=== PATIENT | male | born 1960 | race Hispanic/Latino ===

== ENCOUNTER 2020-09-07 00:13 | Inpatient (IN) | payer MEDICARE, OTHER ==
[~2020-09-07] VITALS: Ht 162.6 cm; Wt 69.7 kg
[2020-09-07 01:08] LABS: BASOPHILS % (AUTO) 0.3 % (0.0-5.0); EOSINOPHILS % (AUTO) 2.8 % (0.0-8.0); LYMPHOCYTES % (AUTO) 27.6 % (21.0-51.0); MEAN CORPUSCULAR HEMOGLOBIN 30.9 pg (27.0-33.0); MEAN CORPUSCULAR VOLUME 96.7 fL (79-99); MONOCYTES % (AUTO) 6.1 % (3.0-13.0); PLATELET COUNT (AUTO) 155 K/uL (130-400); RED BLOOD CELL COUNT(AUTO) 1.81 MIL/uL (4.50-6.20); WHITE BLOOD COUNT (AUTO) 6.1 K/uL (4.8-10.8)
[2020-09-07 01:11] LABS: INR 0.99 (0.85-1.15); PROTHROMBIN TIME 10.6 SEC (9.6-11.6)
[2020-09-07 01:12] LABS: PARTIAL THROMBOPLASTIN TIME 25.4 SEC (26.3-35.5)
[2020-09-07 01:13] LABS: HEMATOCRIT 17.5 % (42-54)
[2020-09-07 01:24] LABS: B-TYPE NATRIURETIC PEPTIDE 409 pg/mL (0-100)
[2020-09-07 01:50] LABS: ALBUMIN 2.3 g/dL (3.5-5.0); BILIRUBIN,TOTAL 0.1 mg/dL (0.2-1.0); TOTAL PROTEIN, SERUM 5.2 g/dL (6.0-8.3)
[2020-09-07 02:04] LABS: CREATININE 12.3 mg/dL (0.5-1.5)
[2020-09-07] MEDS ORDERED: ONDANSETRON 4MG INJ IV PRN (03:00)
[2020-09-07] MEDS ORDERED: MORPHINE 2 MG SYG IV PRN (03:00)
[2020-09-07] MEDS ORDERED: 0.9% NACL 250ML 250 ML IV ONE (03:07)
[2020-09-07] MEDS ORDERED: PANTOPRAZOLE 40 MG/VIAL ONE (03:19)
[2020-09-07] MEDS ORDERED: 0.9%NACL 100ML 100 ML IV ONE (03:20)
[2020-09-07] MEDS ORDERED: 0.9%NACL 1000ML 1,000 ML IV ONE (03:20)
[2020-09-07 03:40] LABS: AMPHET/METH SCREEN,URINE NEGATIVE (NEGATIVE); BARBITURATE SCREEN, URINE NEGATIVE (NEGATIVE); BENZODIAZEPINES SCREEN,URINE NEGATIVE (NEGATIVE); CANNABINOID SCREEN,URINE NEGATIVE (NEGATIVE); COCAINE SCREEN,URINE NEGATIVE (NEGATIVE); OPIATE SCREEN,URINE NEGATIVE (NEGATIVE); PHENCYCLIDINE SCREEN,URINE NEGATIVE (NEGATIVE)
[2020-09-07] MEDS: PANTOPRAZOLE 40MG INJ 80 MG in 0.9%NACL 100ML 100 ML IV SCH ×2 (05:00→16:38)
[2020-09-07 08:30] VITALS: BP 151/91
[2020-09-07 12:00] VITALS: BP 152/85
[2020-09-07 12:01] LABS: HEMATOCRIT 21.2 % (42-54)
[2020-09-07] MEDS ORDERED: SODIUM BICARBONATE 650 MG TAB PO PRN (13:15)
[2020-09-07 16:00] VITALS: BP 152/85
[2020-09-07 20:00] VITALS: BP 145/89
[2020-09-07 20:47] LABS: HEMATOCRIT 24.4 % (42-54)
[2020-09-07] MEDS ORDERED: CLONIDINE HCL 0.1 MG TABLET PO PRN (22:00)
[2020-09-07] MEDS ORDERED: ACETAMINOPHEN 325 MG TAB PO PRN (22:00)
[2020-09-08] VITALS: BP 140/91
[2020-09-08 00:38] LABS: HEMATOCRIT 23.6 % (42-54)
[2020-09-08] MEDS: PANTOPRAZOLE 40MG INJ 80 MG in 0.9%NACL 100ML 100 ML IV SCH ×2 (01:36→12:05)
[2020-09-08 04:00] VITALS: BP 137/78
[2020-09-08 06:53] LABS: RETICULOCYTE % (AUTO) 1.16 % (0.42-2.23)
[2020-09-08 06:54] LABS: BASOPHILS % (AUTO) 0.5 % (0.0-5.0); EOSINOPHILS % (AUTO) 2.5 % (0.0-8.0); HEMATOCRIT 27.9 % (42-54); LYMPHOCYTES % (AUTO) 18.7 % (21.0-51.0); MEAN CORPUSCULAR HEMOGLOBIN 29.5 pg (27.0-33.0); MEAN CORPUSCULAR HGB CONC 32.6 g/dL (32.0-36.0); MEAN CORPUSCULAR VOLUME 90.6 fL (79-99); MONOCYTES % (AUTO) 5.4 % (3.0-13.0); NEUTROPHILS % (AUTO) 71.9 % (40.0-77.0); PLATELET COUNT (AUTO) 146 K/uL (130-400); RED BLOOD CELL COUNT(AUTO) 3.08 MIL/uL (4.50-6.20); WHITE BLOOD COUNT (AUTO) 6.1 K/uL (4.8-10.8)
[2020-09-08 07:09] LABS: POTASSIUM 4.8 mmol/L (3.5-5.1)
[2020-09-08 07:19] LABS: % IRON SATURATION 38.9 % (30-44)
[2020-09-08 07:25] LABS: CREATININE 12.6 mg/dL (0.5-1.5)
[2020-09-08 08:00] VITALS: BP 154/90
[2020-09-08] MEDS: HYDRALAZINE 25MG TABLET PO SCH ×2 (09:00→15:50)
[2020-09-08 11:44] LABS: HEMATOCRIT 27.2 % (42-54)
[2020-09-08 12:00] VITALS: BP 151/81
[2020-09-08 16:00] VITALS: BP 163/96
== END 2020-09-08 19:20 | disposition home or self-care (01) | DRG 812 ==
LOC: EDH 00:13 → EDHIP 02:58 → 4BH 08:30
PROVIDERS: ADMIT Internal Medicine; ATTEND Internal Medicine
PROC: 30233N1 Transfusion of Nonautologous Red Blood Cells into Peripheral Vein, Percutaneous Approach (ICD-10-PCS; principal; 2020-09-07)
DX: D62 Acute posthemorrhagic anemia (principal); N18.5 Chronic kidney disease, stage 5; K62.5 Hemorrhage of anus and rectum; I12.0 Hypertensive chronic kidney disease with stage 5 chronic kidney disease or end stage renal disease; D63.8 Anemia in other chronic diseases classified elsewhere; Z20.822 Contact with and (suspected) exposure to COVID-19; E78.5 Hyperlipidemia, unspecified; E11.22 Type 2 diabetes mellitus with diabetic chronic kidney disease; D63.1 Anemia in chronic kidney disease
CPT/HCPCS: 36415; 36430; 71045; 80048; 80053; 80305; 82270; 82550; 82607; 82728; 83880; 84484; 85014; 85018; 85025; 85378; 85610; 85730; 86850; 86900; 86901; 86923; 87426; 93005; C9113; G0378; J7030; J7050; P9016; U0003

== ENCOUNTER 2020-10-07 12:07 | Inpatient (IN) | payer OTHER ==
[2020-10-07 14:30] LABS: BASOPHILS % (AUTO) 0.4 % (0.0-5.0); EOSINOPHILS % (AUTO) 1.6 % (0.0-8.0); MEAN CORPUSCULAR HEMOGLOBIN 30.3 pg (27.0-33.0); MEAN CORPUSCULAR HGB CONC 32.8 g/dL (32.0-36.0); MEAN CORPUSCULAR VOLUME 92.3 fL (79-99); MONOCYTES % (AUTO) 4.8 % (3.0-13.0); NEUTROPHILS % (AUTO) 74.8 % (40.0-77.0); PLATELET COUNT (AUTO) 182 K/uL (130-400); RED BLOOD CELL COUNT(AUTO) 1.95 MIL/uL (4.50-6.20); RED CELL DISTRIBUTION WIDTH 14.4 % (11.0-15.5); WHITE BLOOD COUNT (AUTO) 7.1 K/uL (4.8-10.8)
[2020-10-07 14:43] LABS: APPEARANCE,URINE Clear (CLEAR); BILIRUBIN,URINE Negative (NEGATIVE); COLOR,URINE Yellow (YELLOW); GLUCOSE, URINE (UA) 250 mg/dL (NEGATIVE); KETONES,URINE Negative (NEGATIVE); LEUKOCYTE ESTERASE ,URINE Negative (NEGATIVE); NITRATE,URINE Negative (NEGATIVE); OCCULT BLOOD,URINE Small (NEGATIVE); PROTEIN,URINE >=1000 mg/dL (NEGATIVE); UROBILINOGEN,URINE 0.2 mg/dL (0.2-1.0)
[2020-10-07 14:53] LABS: ALBUMIN 2.3 g/dL (3.5-5.0); BILIRUBIN,TOTAL 0.2 mg/dL (0.2-1.0); POTASSIUM 4.1 mmol/L (3.5-5.1); TOTAL PROTEIN, SERUM 6.2 g/dL (6.0-8.3)
[2020-10-07 14:57] LABS: CREATININE 15.2 mg/dL (0.5-1.5)
[2020-10-07 15:02] LABS: BACTERIA,URINE Few /HPF (None Seen); MUCUS,URINE Few LPF (None Seen); SQUAMOUS EPITHELIAL CELL,UR Few /HPF (0-2)
[2020-10-07] MEDS ORDERED: DEXTROSE 50%-WATER 50 ML DISP.SYRIN IV PRN (17:00)
[2020-10-07] MEDS ORDERED: MAGNESIUM 2GM PREMIX 50ML 50 ML IV PRN (17:00)
[2020-10-07] MEDS ORDERED: LABETALOL HCL 5 MG/ML 20ML VIAL IV PRN (17:00)
[2020-10-07] MEDS ORDERED: GLUCAGON 1MG KIT 1 MG ML IM PRN (17:00)
[2020-10-07] MEDS ORDERED: ONDANSETRON HCL 4 MG/2 ML VIAL IVP PRN (17:00)
[2020-10-07] MEDS ORDERED: ACETAMINOPHEN 325 MG TAB PO PRN (17:00)
[2020-10-07] MEDS ORDERED: HEPARIN SODIUM 5000UNIT/ML 1ML VIAL SQ SCH (17:00)
[2020-10-07] MEDS ORDERED: HEPARIN SODIUM 5000UNIT/ML 1ML VIAL ONE (20:05)
[2020-10-07] MEDS ORDERED: PANTOPRAZOLE SODIUM 40 MG TABLET.DR ONE (20:06)
[2020-10-08 07:36] LABS: MEAN CORPUSCULAR HEMOGLOBIN 30.2 pg (27.0-33.0); MEAN CORPUSCULAR VOLUME 91.5 fL (79-99); RED BLOOD CELL COUNT(AUTO) 1.99 MIL/uL (4.50-6.20); RED CELL DISTRIBUTION WIDTH 14.1 % (11.0-15.5); WHITE BLOOD COUNT (AUTO) 5.7 K/uL (4.8-10.8)
[2020-10-08 07:47] LABS: HEMATOCRIT 18.2 % (42-54)
[2020-10-08 07:49] LABS: PROTHROMBIN TIME 10.9 SEC (9.6-11.6)
[2020-10-08 07:52] LABS: POTASSIUM 4.2 mmol/L (3.5-5.1)
[2020-10-08 07:55] LABS: CREATININE 15.2 mg/dL (0.5-1.5)
[2020-10-08] MEDS: PANTOPRAZOLE SODIUM 40 MG TABLET.DR PO SCH (09:00)
[2020-10-08] MEDS ORDERED: PANTOPRAZOLE SODIUM 40 MG TABLET.DR ONE (09:29)
[2020-10-08] MEDS ORDERED: LIDOCAINE HCL 1% MDV 50ML VIAL ONE (10:04)
[2020-10-08 13:18] LABS: HEMATOCRIT 18.3 % (42-54)
[2020-10-08 13:25] LABS: HEMOGLOBIN A1C 5.8 % (4.0-6.0)
[2020-10-08 13:29] LABS: ALBUMIN 2.2 g/dL (3.5-5.0)
[2020-10-08 13:32] LABS: CREATININE 11.1 mg/dL (0.5-1.5)
[2020-10-08 16:00] VITALS: BP 145/81
[2020-10-08] MEDS ORDERED: HEPARIN SODIUM 5000UNIT/ML 1ML VIAL IJ PRN (16:00)
[2020-10-08] MEDS ORDERED: ALBUMIN FOR BP SUPPORT MISC PRN (16:00)
[2020-10-08] MEDS ORDERED: SODIUM CHLORIDE 0.9% 1000ML 1,000 ML IV PRN (16:00)
[2020-10-08] MEDS ORDERED: NITROGLYCERIN 0.4 MG SL TAB SL PRN (16:00)
[2020-10-08] MEDS ORDERED: 0.9% SODIUM CHLORIDE 1000 ML IV BAG IV PRN (16:00)
[2020-10-08] MEDS ORDERED: ACETAMINOPHEN 325 MG TAB PO PRN (16:00)
[2020-10-08] MEDS ORDERED: LIDOCAINE HCL-MPF 1% 2ML VIAL IJ PRN (16:00)
[2020-10-08] MEDS: HEPARIN SODIUM 5000UNIT/ML 1ML VIAL IJ PRN (16:13)
[2020-10-08 20:32] VITALS: BP 136/80
[2020-10-08] MEDS: HEPARIN SODIUM 5000UNIT/ML 1ML VIAL SQ SCH (21:47)
[2020-10-08 23:39] VITALS: BP 152/76
[2020-10-09 03:40] VITALS: BP 137/81
[2020-10-09 04:48] LABS: HEMATOCRIT 21.2 % (42-54); MEAN CORPUSCULAR HEMOGLOBIN 29.4 pg (27.0-33.0); MEAN CORPUSCULAR VOLUME 89.1 fL (79-99); RED BLOOD CELL COUNT(AUTO) 2.38 MIL/uL (4.50-6.20); RED CELL DISTRIBUTION WIDTH 13.9 % (11.0-15.5); WHITE BLOOD COUNT (AUTO) 6.2 K/uL (4.8-10.8)
[2020-10-09 05:05] LABS: ALBUMIN 2.1 g/dL (3.5-5.0); BILIRUBIN,TOTAL 0.5 mg/dL (0.2-1.0); TOTAL PROTEIN, SERUM 5.8 g/dL (6.0-8.3)
[2020-10-09 08:00] VITALS: BP 154/92
[2020-10-09] MEDS: HEPARIN SODIUM 5000UNIT/ML 1ML VIAL SQ SCH ×2 (09:00→21:00)
[2020-10-09] MEDS: PANTOPRAZOLE SODIUM 40 MG TABLET.DR PO SCH (11:15)
[2020-10-09 12:00] VITALS: BP 139/94
[2020-10-09 16:00] VITALS: BP 131/77
[2020-10-09 17:00] VITALS: BP 152/70
[2020-10-09 19:00] VITALS: BP_SYST 102; BP_SYST 152; BP_DIAS 63; BP_DIAS 70
[2020-10-10] VITALS (7 sets, daily range): BP systolic 129–155; BP diastolic 80–98
[2020-10-10 04:05] LABS: HEMATOCRIT 24.7 % (42-54); MEAN CORPUSCULAR HEMOGLOBIN 29.2 pg (27.0-33.0); MEAN CORPUSCULAR HGB CONC 33.6 g/dL (32.0-36.0); RED BLOOD CELL COUNT(AUTO) 2.84 MIL/uL (4.50-6.20); RED CELL DISTRIBUTION WIDTH 14.2 % (11.0-15.5); WHITE BLOOD COUNT (AUTO) 5.8 K/uL (4.8-10.8)
[2020-10-10 04:38] LABS: POTASSIUM 4.1 mmol/L (3.5-5.1)
[2020-10-10 04:45] LABS: CREATININE 9.1 mg/dL (0.5-1.5)
[2020-10-10 07:14] LABS: HEPATITIS Bs ANTIGEN SCREEN P Negative (Negative)
[2020-10-10] MEDS: PANTOPRAZOLE SODIUM 40 MG TABLET.DR PO SCH (09:00)
[2020-10-10] MEDS: HEPARIN SODIUM 5000UNIT/ML 1ML VIAL SQ SCH ×2 (20:11→20:12)
[2020-10-11 04:35] VITALS: BP 125/80
[2020-10-11 05:34] LABS: HEMATOCRIT 23.4 % (42-54); MEAN CORPUSCULAR HEMOGLOBIN 29.5 pg (27.0-33.0); MEAN CORPUSCULAR HGB CONC 33.3 g/dL (32.0-36.0); MEAN CORPUSCULAR VOLUME 88.6 fL (79-99); RED BLOOD CELL COUNT(AUTO) 2.64 MIL/uL (4.50-6.20); WHITE BLOOD COUNT (AUTO) 5.6 K/uL (4.8-10.8)
[2020-10-11 05:39] LABS: CREATININE 7.6 mg/dL (0.5-1.5); POTASSIUM 3.9 mmol/L (3.5-5.1)
[2020-10-11 08:00] VITALS: BP 118/81
[2020-10-11] MEDS: PANTOPRAZOLE SODIUM 40 MG TABLET.DR PO SCH (09:13)
[2020-10-11] MEDS: HEPARIN SODIUM 5000UNIT/ML 1ML VIAL SQ SCH ×2 (09:16→21:13)
[2020-10-11 14:59] VITALS: BP 120/82
[2020-10-11 19:58] VITALS: BP 133/89
[2020-10-11 23:20] VITALS: BP 126/83
[2020-10-12 03:29] VITALS: BP 102/77
[2020-10-12 05:50] LABS: HEMATOCRIT 22.9 % (42-54); MEAN CORPUSCULAR HEMOGLOBIN 29.6 pg (27.0-33.0); MEAN CORPUSCULAR HGB CONC 33.2 g/dL (32.0-36.0); MEAN CORPUSCULAR VOLUME 89.1 fL (79-99); RED BLOOD CELL COUNT(AUTO) 2.57 MIL/uL (4.50-6.20); RED CELL DISTRIBUTION WIDTH 13.8 % (11.0-15.5); WHITE BLOOD COUNT (AUTO) 6.6 K/uL (4.8-10.8)
[2020-10-12 06:22] LABS: POTASSIUM 4.3 mmol/L (3.5-5.1)
[2020-10-12 06:25] LABS: CREATININE 9.5 mg/dL (0.5-1.5)
[2020-10-12 07:00] VITALS: BP 134/87
[2020-10-12] MEDS: PANTOPRAZOLE SODIUM 40 MG TABLET.DR PO SCH (08:50)
[2020-10-12] MEDS: HEPARIN SODIUM 5000UNIT/ML 1ML VIAL SQ SCH ×2 (08:55→22:24)
[2020-10-12] MEDS ORDERED: PANT40TA54 PO (09:59)
[2020-10-12 11:00] VITALS: BP 133/83
[2020-10-12 15:00] VITALS: BP 117/77
[2020-10-12 19:09] VITALS: BP 134/84
[2020-10-12 23:21] VITALS: BP 133/84
[2020-10-13 03:01] VITALS: BP 128/80
[2020-10-13 08:48] VITALS: BP 132/83
[2020-10-13] MEDS: PANTOPRAZOLE SODIUM 40 MG TABLET.DR PO SCH (13:13)
[2020-10-13] MEDS: HEPARIN SODIUM 5000UNIT/ML 1ML VIAL SQ SCH (13:18)
[2020-10-13] MEDS: HEPARIN SODIUM 5000UNIT/ML 1ML VIAL IJ PRN (13:19)
[2020-10-13 13:21] VITALS: BP 129/87
[2020-10-13 18:14] VITALS: BP 140/90
[2020-10-14] MEDS ORDERED: PANTOPRAZOLE SODIUM 40 MG TABLET.DR PO SCH (09:00)
== END 2020-10-13 13:00 | disposition home or self-care (01) | DRG 673 ==
LOC: EDH 12:07 → OBSVTOIN 16:49 → EDHIP 16:49 → 4CH 10-08 11:25
PROVIDERS: ADMIT Internal Medicine Pulmonary Disease; ATTEND Internal Medicine Pulmonary Disease
PROC: 30233N1 Transfusion of Nonautologous Red Blood Cells into Peripheral Vein, Percutaneous Approach (ICD-10-PCS; principal; 2020-10-07)
PROC: 0JH63XZ Insertion of Tunneled Vascular Access Device into Chest Subcutaneous Tissue and Fascia, Percutaneous Approach (ICD-10-PCS; 2020-10-08)
PROC: 02H633Z Insertion of Infusion Device into Right Atrium, Percutaneous Approach (ICD-10-PCS; 2020-10-08)
PROC: B5181ZA Fluoroscopy of Superior Vena Cava using Low Osmolar Contrast, Guidance (ICD-10-PCS; 2020-10-08)
PROC: B548ZZA Ultrasonography of Superior Vena Cava, Guidance (ICD-10-PCS; 2020-10-08)
PROC: 5A1D70Z Performance of Urinary Filtration, Intermittent, Less than 6 Hours Per Day (ICD-10-PCS; 2020-10-08)
PROC: 5A1D70Z Performance of Urinary Filtration, Intermittent, Less than 6 Hours Per Day (ICD-10-PCS; 2020-10-09)
PROC: 5A1D70Z Performance of Urinary Filtration, Intermittent, Less than 6 Hours Per Day (ICD-10-PCS; 2020-10-10)
PROC: 5A1D70Z Performance of Urinary Filtration, Intermittent, Less than 6 Hours Per Day (ICD-10-PCS; 2020-10-13)
DX: I12.0 Hypertensive chronic kidney disease with stage 5 chronic kidney disease or end stage renal disease (principal); N18.6 End stage renal disease; D63.1 Anemia in chronic kidney disease; K29.70 Gastritis, unspecified, without bleeding; E78.5 Hyperlipidemia, unspecified; Z20.822 Contact with and (suspected) exposure to COVID-19
CPT/HCPCS: 36415; 36430; 36558; 71045; 77001; 80048; 80053; 80061; 81001; 82040; 82550; 82565; 82728; 82948; 83036; 83540; 83550; 83605; 83735; 83880; 84484; 84520; 85014; 85018; 85025; 85027; 85610; 86701; 86704; 86706; 86850; 86900; 86901; 86923; 87040; 87340; 87390; 87426; 87520; 90935; 93005; C1750; G0378; J1644; J3490; J7070; P9016; U0003

== ENCOUNTER 2022-08-22 10:17 | Emergency (ER) | payer OTHER ==
[~2022-08-22] VITALS: Ht 167.6 cm; Wt 67.1 kg
[~2022-08-22 10:17] MED LIST: DOXY100T21 PO; PANT40TA54 PO
[2022-08-22 10:25] VITALS: BP 146/96
[2022-08-22 12:06] LABS: ALBUMIN 3.3 g/dL (3.5-5.0); POTASSIUM 4.7 mmol/L (3.5-5.1); TOTAL PROTEIN, SERUM 7.3 g/dL (6.0-8.3)
[2022-08-22 12:19] LABS: B-TYPE NATRIURETIC PEPTIDE 1150 pg/mL (0-100)
[2022-08-22 12:22] LABS: BASOPHILS % (AUTO) 1.5 % (0.0-5.0); HEMATOCRIT 34.6 % (42-54); LYMPHOCYTES % (AUTO) 32.5 % (21.0-51.0); MEAN CORPUSCULAR HEMOGLOBIN 30.5 pg (27.0-33.0); MEAN CORPUSCULAR HGB CONC 33.5 g/dL (32.0-36.0); MEAN CORPUSCULAR VOLUME 91.1 fL (79-99); MONOCYTES % (AUTO) 11.5 % (3.0-13.0); NEUTROPHILS % (AUTO) 37.1 % (40.0-77.0); PLATELET COUNT (AUTO) 184 K/uL (130-400); RED CELL DISTRIBUTION WIDTH 13.3 % (11.0-15.5); WHITE BLOOD COUNT (AUTO) 5.5 K/uL (4.8-10.8)
[2022-08-22 12:27] LABS: CREATININE 12.3 mg/dL (0.5-1.5)
== END 2022-08-22 12:55 | disposition left against medical advice (07) ==
LOC: EDH 10:17
DX: R06.02 Shortness of breath (principal); Z53.21 Procedure and treatment not carried out due to patient leaving prior to being seen by health care provider; Z20.822 Contact with and (suspected) exposure to COVID-19
CPT/HCPCS: 84484; 80053; 83880; 85025; 87804 ×2; 36415; 87635; C9803

== ENCOUNTER 2023-11-08 21:15 | Emergency (ER) | payer OTHER ==
[~2023-11-08] VITALS: Ht 162.6 cm; Wt 70.3 kg
[2023-11-08 21:41] LABS: BASOPHILS # (AUTO) 0.06 K/uL (0.00-0.20); BASOPHILS % (AUTO) 0.9 % (0.0-5.0); EOSINOPHILS # (AUTO) 0.25 K/uL (0.00-0.70); EOSINOPHILS % (AUTO) 3.6 % (0.0-8.0); HEMATOCRIT 38.4 % (42-54); IMMATURE GRANULOCYTE ABSOLUTE 0.02 K/uL (0-1); LYMPHOCYTES # (AUTO) 2.6 K/uL (1.0-4.8); LYMPHOCYTES % (AUTO) 37.3 % (21.0-51.0); MEAN CORPUSCULAR HEMOGLOBIN 32.5 pg (27.0-33.0); MEAN CORPUSCULAR HGB CONC 33.1 g/dL (32.0-36.0); MEAN CORPUSCULAR VOLUME 98.2 fL (79-99); MONOCYTES # (AUTO) 0.5 K/uL (0.1-1.0); MONOCYTES % (AUTO) 7.8 % (3.0-13.0); NEUTROPHILS # (AUTO) 3.5 K/uL (1.8-7.7); NEUTROPHILS % (AUTO) 50.1 % (40.0-77.0); PLATELET COUNT (AUTO) 186 K/uL (130-400); RED BLOOD CELL COUNT(AUTO) 3.91 MIL/uL (4.50-6.20); RED CELL DISTRIBUTION WIDTH 13.3 % (11.0-15.5); WHITE BLOOD COUNT (AUTO) 6.9 K/uL (4.8-10.8)
[2023-11-08 21:55] LABS: INR 0.95 (0.85-1.15); PROTHROMBIN TIME 11.3 SEC (9.6-11.6)
[2023-11-08 21:56] LABS: PARTIAL THROMBOPLASTIN TIME 25.5 SEC (26.3-35.5)
[2023-11-08 21:57] LABS: ALBUMIN 3.5 g/dL (3.5-5.0); BILIRUBIN,TOTAL 0.4 mg/dL (0.2-1.0); POTASSIUM 4.5 mmol/L (3.5-5.1); TOTAL PROTEIN, SERUM 7.5 g/dL (6.0-8.3)
[2023-11-08 21:58] LABS: CREATININE 11.1 mg/dL (0.5-1.3)
[2023-11-08] MEDS ORDERED: IOHEXOL 350 MG/ML 100ML INFUS..BTL IV ONE (22:45)
[2023-11-09] MEDS ORDERED: DOCU-116 PO (03:01)
[2023-11-09] MEDS: MAGNESIUM HYDROXIDE 30 ML/UDCUP ONE (03:32)
[2023-11-09] MEDS: MAGNESIUM CITRATE 296 ML SOLUTION PO ONE (03:32)
[2023-11-09 03:33] VITALS: BP 142/82; PULSE 63; RESP 18; O2SAT 98
== END 2023-11-09 03:35 | disposition home or self-care (01) ==
LOC: EDH 21:15
DX: K92.1 Melena (principal); K59.00 Constipation, unspecified; Z79.899 Other long term (current) drug therapy; Z98.890 Other specified postprocedural states
CPT/HCPCS: 99285; 74177; 82270; 80053; 85025; 85610; 85730; 86850; 86900; 86901; 36415; Q9967